=== PATIENT | female | born 1960 | race Caucasian/White ===

== ENCOUNTER 2017-10-28 18:59 | Emergency (ER) | payer OTHER ==
[~2017-10-28] VITALS: Ht 157.5 cm; Wt 103.4 kg
[~2017-10-28 18:59] MED LIST: METFORMIN
--- NOTE | 2017-10-28 19:35 | NUR ---
JACKIE SCHNEIDER AT BEDSIDE FOR MSE.
[2017-10-28] MEDS ORDERED: ONDANSETRON 4 MG/2 ML VIAL IV ONE (19:45)
[2017-10-28] MEDS ORDERED: MORPHINE SULFATE 2 MG/1 ML DISP.SYRIN IV ONE (19:45)
[2017-10-28 20:04] LABS: BASOPHILS # (AUTO) 0.1 K/uL (0.0-8.0); BASOPHILS % (AUTO) 0.5 % (0.0-2.0); EOSINOPHILS # (AUTO) 0.3 K/uL (0.0-0.7); HEMATOCRIT 36.7 % (31.2-41.9); HEMOGLOBIN 12.4 g/dL (10.9-14.3); LYMPHOCYTES # (AUTO) 4.5 K/uL (20.0-40.0); LYMPHOCYTES % (AUTO) 38.6 % (20.5-51.5); MEAN CORPUSCULAR HEMOGLOBIN 27.5 uug (24.7-32.8); MEAN CORPUSCULAR HGB CONC 34 g/dL (32.3-35.6); MEAN CORPUSCULAR VOLUME 81.9 fL (75.5-95.3); MONOCYTES # (AUTO) 0.6 K/uL (2.0-10.0); MONOCYTES % (AUTO) 5.2 % (0.0-11.0); NEUTROPHILS # (AUTO) 6.1 K/uL (1.8-8.9); NEUTROPHILS % (AUTO) 52.7 % (38.5-71.5); PLATELET COUNT (AUTO) 290 K/uL (179-408); RED BLOOD CELL COUNT(AUTO) 4.49 MIL/uL (3.63-4.92); WHITE BLOOD COUNT (AUTO) 11.6 K/uL (3.8-11.8)
[2017-10-28] MEDS ORDERED: ONDANSETRON 4 MG/2 ML VIAL ONE (20:04)
[2017-10-28] MEDS ORDERED: MORPHINE SULFATE 4 MG/1 ML DISP.SYRIN ONE (20:04)
[2017-10-28 20:13] LABS: CREATININE 1.1 mg/dL (0.6-1.3); POTASSIUM 4.8 mmol/L (3.5-5.1)
[2017-10-28 20:19] LABS: BILIRUBIN,DIRECT 0.1 mg/dL (0.0-0.2); BILIRUBIN,TOTAL 0.3 mg/dL (0.2-1.0); TOTAL PROTEIN, SERUM 7.6 g/dL (6.4-8.2)
--- NOTE | 2017-10-28 20:41 | NUR ---
PT AMBULATED TO BATHROOM W/ STEADY GAIT. NO SIGNS OF DISTRESS NOTED. URINE SAMPLE PROVIDED.
[2017-10-28 20:47] LABS: *BILIRUBIN,URIN NEGATIVE (NEGATIVE); *BLOOD, URINE NEGATIVE (NEGATIVE); *CLARITY,URINE CLEAR (CLEAR); *COLOR,URINE YELLOW (YELLOW); *KETONES,URINE 1+ (NEGATIVE); *PROTEIN,URINE 1+ (NEGATIVE); *UROBILINOGEN,URINE 0.2 E.U./dl (NORMAL); LEUKOCYTE ESTERASE ,URINE NEGATIVE (NEGATIVE); NITRITE, URINE NEGATIVE (NEGATIVE); PH,URINE 5.5 (5.0-8.0); UGLUCOSE NEGATIVE (NEGATIVE)
[2017-10-28 21:07] LABS: BACTERIA,URINE FEW /HPF (NONE SEEN); SQUAMOUS EPITHELIAL CELL,UR FEW /HPF (NONE SEEN); WBC,URINE 0-3 /HPF (0-3)
[2017-10-28 21:08] LABS: MUCUS,URINE MODERATE /LPF (0-FEW)
--- NOTE | 2017-10-28 21:41 | NUR ---
PT RESTING IN A POSITION OF COMFORT W/ EYES CLOSED. NO SIGNS OF DISTRESS NOTED.
[2017-10-28] MEDS ORDERED: HYDROMORPHONE 1 MG/1 ML DISP.SYRIN IV ONE (22:30)
[2017-10-28] MEDS ORDERED: HYDROMORPHONE 2 MG/1 ML DISP.SYRIN ONE (22:46)
--- NOTE | 2017-10-28 22:58 | NUR ---
Patient discharged to home in stable conditon. Written and verbal after care instructions given. Patient verbalizes understanding of instructions. IV removed w/ catheter intact. no bleeding noted at site. Pt ambulated from ER w/ steady gait. Pt took all personal belongings.
[2017-10-28 23:01] VITALS: BP 136/82
== END 2017-10-28 23:01 | disposition home or self-care (01) ==
LOC: ER 18:59
DX: R10.11 Right upper quadrant pain (principal); E11.9 Type 2 diabetes mellitus without complications; E78.00 Pure hypercholesterolemia, unspecified; Z79.84 Long term (current) use of oral hypoglycemic drugs
CPT/HCPCS: 36415; 70030-TC; 71045; 83690; 85025; 93005; A4663; J1170; J2270; J2405

== ENCOUNTER 2019-03-06 12:31 | Emergency (ER) | payer OTHER ==
[~2019-03-06] VITALS: Ht 160 cm; Wt 102.1 kg
--- NOTE | 2019-03-06 12:42 | NUR ---
PT A/OX4, PRESENTS TO THE ER C/O DIZZINESS SINCE THIS AM. 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 VSS. PT DENIES C/P, SOB, N/V/D, HEADACHE. ER MD AT BEDSIDE FOR MSE.
[2019-03-06] MEDS ORDERED: IV NORMAL SALINE 1000 ML BAG IV ONE (12:45)
[2019-03-06 13:06] LABS: BASOPHILS # (AUTO) 0.1 K/uL (0.0-8.0); BASOPHILS % (AUTO) 0.6 % (0.0-2.0); EOSINOPHILS # (AUTO) 0.2 K/uL (0.0-0.7); EOSINOPHILS % (AUTO) 1.9 % (0.0-7.0); HEMATOCRIT 38.4 % (31.2-41.9); HEMOGLOBIN 12.5 g/dL (10.9-14.3); LYMPHOCYTES # (AUTO) 3.4 K/uL (20.0-40.0); LYMPHOCYTES % (AUTO) 34.9 % (20.5-51.5); MEAN CORPUSCULAR HEMOGLOBIN 26.1 uug (24.7-32.8); MEAN CORPUSCULAR HGB CONC 32 g/dL (32.3-35.6); MEAN CORPUSCULAR VOLUME 80.6 fL (75.5-95.3); MONOCYTES # (AUTO) 0.4 K/uL (2.0-10.0); MONOCYTES % (AUTO) 4.3 % (0.0-11.0); NEUTROPHILS # (AUTO) 5.7 K/uL (1.8-8.9); NEUTROPHILS % (AUTO) 58.3 % (38.5-71.5); PLATELET COUNT (AUTO) 291 K/uL (179-408); RED BLOOD CELL COUNT(AUTO) 4.77 MIL/uL (3.63-4.92); WHITE BLOOD COUNT (AUTO) 9.8 K/uL (3.8-11.8)
[2019-03-06 13:10] LABS: CREATININE 0.8 mg/dL (0.6-1.3); POTASSIUM 4.4 mmol/L (3.5-5.1)
[2019-03-06 13:20] LABS: BILIRUBIN,DIRECT 0.1 mg/dL (0.0-0.2); BILIRUBIN,TOTAL 0.3 mg/dL (0.2-1.0); TOTAL PROTEIN, SERUM 7.8 g/dL (6.4-8.2)
--- NOTE | 2019-03-06 13:28 | NUR ---
JACKIE SCHNEIDER AT BEDSIDE FOR PT UPDATE.
--- NOTE | 2019-03-06 13:35 | NUR ---
Patient discharged to home in stable conditon. Written and verbal after care instructions given. Patient verbalizes understanding of instructions. ALL BELONGINGS W/ PT. PT SELF-AMBULATED W/O DIFFICULTY. 20G IV ACCESS IN R HAND REMOVED PRIOR TO D/C - INNER CANNULA INTACT.
[2019-03-06 13:36] VITALS: BP 141/76
== END 2019-03-06 13:37 | disposition home or self-care (01) ==
LOC: ER 12:31
DX: R42 Dizziness and giddiness (principal); E78.00 Pure hypercholesterolemia, unspecified; E11.9 Type 2 diabetes mellitus without complications; Z79.84 Long term (current) use of oral hypoglycemic drugs
CPT/HCPCS: 36415; 70030-TC; 83690; 85025; 93005; A4663; J7030

== ENCOUNTER 2019-08-17 17:46 | Emergency (ER) | payer OTHER ==
[~2019-08-17] VITALS: Ht 160 cm; Wt 102.5 kg
[2019-08-17] MEDS ORDERED: ASPI-605 PO (18:13)
[2019-08-17 18:53] LABS: *BILIRUBIN,URIN NEGATIVE (NEGATIVE); *BLOOD, URINE NEGATIVE (NEGATIVE); *COLOR,URINE YELLOW (YELLOW); *KETONES,URINE NEGATIVE (NEGATIVE); *UROBILINOGEN,URINE 0.2 E.U./dl (NORMAL); LEUKOCYTE ESTERASE ,URINE NEGATIVE (NEGATIVE); NITRITE, URINE NEGATIVE (NEGATIVE); PH,URINE 5.5 (5.0-8.0); UGLUCOSE NEGATIVE (NEGATIVE)
[2019-08-17 18:59] LABS: *CLARITY,URINE SLIGHTLY HAZY (CLEAR)
[2019-08-17 19:00] LABS: BACTERIA,URINE FEW /HPF (NONE SEEN); MUCUS,URINE MANY /LPF (0-FEW); SQUAMOUS EPITHELIAL CELL,UR FEW /HPF (NONE SEEN); WBC,URINE 0-3 /HPF (0-3)
[2019-08-17] MEDS ORDERED: ONDANSETRON ODT 4 MG TAB.RAPDIS ONE (19:28)
[2019-08-17] MEDS ORDERED: CYCLOBENZAPRINE HCL 10 MG TABLET ONE (19:28)
[2019-08-17] MEDS ORDERED: KETOROLAC TROMETHAMINE 30 MG INJ ONE (19:28)
[2019-08-17] MEDS ORDERED: CYCLOBENZAPRINE HCL 10 MG TABLET PO ONE (19:30)
[2019-08-17] MEDS ORDERED: ONDANSETRON ODT 4 MG TAB.RAPDIS SL ONE (19:30)
[2019-08-17] MEDS ORDERED: KETOROLAC TROMETHAMINE 30 MG INJ IM ONE (19:30)
[2019-08-17] MEDS ORDERED: IV NS 1000 ML 1,000 ML IV ONE (19:45)
[2019-08-17 19:58] LABS: CREATININE 0.7 mg/dL (0.6-1.3); POTASSIUM 4.2 mmol/L (3.5-5.1)
[2019-08-17 19:59] LABS: BASOPHILS % (AUTO) 0.3 % (0.0-2.0); EOSINOPHILS # (AUTO) 0.1 K/uL (0.0-0.7); EOSINOPHILS % (AUTO) 1.6 % (0.0-7.0); HEMATOCRIT 38.8 % (31.2-41.9); HEMOGLOBIN 12.8 g/dL (10.9-14.3); LYMPHOCYTES # (AUTO) 1.1 K/uL (20.0-40.0); LYMPHOCYTES % (AUTO) 13.8 % (20.5-51.5); MEAN CORPUSCULAR HEMOGLOBIN 26.7 uug (24.7-32.8); MEAN CORPUSCULAR HGB CONC 33 g/dL (32.3-35.6); MEAN CORPUSCULAR VOLUME 80.8 fL (75.5-95.3); MONOCYTES # (AUTO) 0.3 K/uL (2.0-10.0); MONOCYTES % (AUTO) 3.1 % (0.0-11.0); NEUTROPHILS # (AUTO) 6.6 K/uL (1.8-8.9); NEUTROPHILS % (AUTO) 81.2 % (38.5-71.5); PLATELET COUNT (AUTO) 293 K/uL (179-408); RED BLOOD CELL COUNT(AUTO) 4.81 MIL/uL (3.63-4.92); WHITE BLOOD COUNT (AUTO) 8.1 K/uL (3.8-11.8)
[2019-08-17 20:03] LABS: BILIRUBIN,DIRECT 0.1 mg/dL (0.0-0.2); BILIRUBIN,TOTAL 0.4 mg/dL (0.2-1.0); TOTAL PROTEIN, SERUM 7.7 g/dL (6.4-8.2)
--- NOTE | 2019-08-17 20:50 | NUR ---
Patient states back pain is 2/10 and nausea is resolved. But c/o "heart burn" Dr Gordon made aware.
[2019-08-17] MEDS ORDERED: MAG HYDROX/AL HYDROX/SIMETH 30 ML LIQUID UDC PO ONE (21:00)
[2019-08-17] MEDS ORDERED: LIDOCAINE VISCUS 2% 15 ML UDC MM ONE (21:00)
[2019-08-17] MEDS ORDERED: MAG HYDROX/AL HYDROX/SIMETH 30 ML LIQUID UDC ONE (21:05)
[2019-08-17] MEDS ORDERED: LIDOCAINE VISCUS 2% 15 ML UDC ONE (21:06)
--- NOTE | 2019-08-17 21:45 | NUR ---
Patient states "heart burn is gone. No distress noted.
--- NOTE | 2019-08-17 21:51 | NUR ---
IV removed. Catheter intact and site benign. Pressure and 4x4 gauze applied to site. No bleeding noted.
[2019-08-17 21:58] VITALS: BP 138/66
--- NOTE | 2019-08-17 21:58 | NUR ---
Patient discharged to home in stable conditon with family taking Patient home. Written and verbal after care instructions given. Patient verbalizes understanding of instructions. Walked out of ER with no distressm noted.
== END 2019-08-17 21:59 | disposition home or self-care (01) ==
LOC: ER 17:46
DX: M54.9 Dorsalgia, unspecified (principal); R10.9 Unspecified abdominal pain; M25.512 Pain in left shoulder; R11.2 Nausea with vomiting, unspecified; E78.5 Hyperlipidemia, unspecified; E11.9 Type 2 diabetes mellitus without complications; Z79.82 Long term (current) use of aspirin; Z79.84 Long term (current) use of oral hypoglycemic drugs
CPT/HCPCS: 36415; 73030; 74176; 80048; 80076; 81000; 81001; 84484; 85025; 93005; 96360; 96372; 99284; J1885; 70030-TC; A4663; J7030; Q0162

== ENCOUNTER 2020-04-19 20:22 | Emergency (ER) | payer OTHER ==
[~2020-04-19] VITALS: Ht 160 cm; Wt 102.1 kg
[~2020-04-19 20:22] MED LIST changes: +ASPI-605 PO
--- NOTE | 2020-04-19 20:40 | NUR ---
MD Gordon at [facility] for MSE
[2020-04-19] MEDS ORDERED: CYCLOBENZAPRINE HCL 10 MG TABLET PO ONE (20:45)
[2020-04-19] MEDS ORDERED: IBUPROFEN 800 MG TABLET PO ONE (20:45)
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
[2020-04-19] MEDS ORDERED: IBUPROFEN 800 MG TABLET ONE (20:51)
[2020-04-19] MEDS ORDERED: CYCLOBENZAPRINE HCL 10 MG TABLET ONE (20:51)
--- NOTE | 2020-04-19 20:54 | NUR ---
Radiology in the room at this time
--- NOTE | 2020-04-19 21:40 | NUR ---
Patient noted resting in bed, vitals WNL
--- NOTE | 2020-04-19 22:04 | NUR ---
Patient discharged to home in stable condition. Noted ambulating with steady gait. Written and verbal after care instructions given. instructed to follow up with ortho surgeon, information provided on surgeon to followup with. Patient verbalizes understanding of instructions. Stressed follow up or return to ER for worsening s/s. no signs of acute distress. RX given, instructed not to drive when taking medication provided, states daughter will pick her up
[2020-04-19 22:06] VITALS: BP 142/78
== END 2020-04-19 22:07 | disposition home or self-care (01) ==
LOC: ER 20:24
DX: R07.89 Other chest pain (principal); S83.91XA Sprain of unspecified site of right knee, initial encounter; V43.52XA Car driver injured in collision with other type car in traffic accident, initial encounter; Y92.488 Other paved roadways as the place of occurrence of the external cause; E11.9 Type 2 diabetes mellitus without complications; E78.00 Pure hypercholesterolemia, unspecified; R03.0 Elevated blood-pressure reading, without diagnosis of hypertension
CPT/HCPCS: 71101; 93005; A4663

== ENCOUNTER 2020-04-23 14:46 | Emergency (ER) | payer OTHER ==
[~2020-04-23] VITALS: Ht 160 cm; Wt 102.1 kg
[2020-04-23 16:22] LABS: BASOPHILS # (AUTO) 0.1 K/uL (0.0-8.0); BASOPHILS % (AUTO) 0.6 % (0.0-2.0); EOSINOPHILS # (AUTO) 0.2 K/uL (0.0-0.7); EOSINOPHILS % (AUTO) 2.6 % (0.0-7.0); HEMATOCRIT 36.2 % (31.2-41.9); LYMPHOCYTES # (AUTO) 3.1 K/uL (20.0-40.0); LYMPHOCYTES % (AUTO) 34.6 % (20.5-51.5); MEAN CORPUSCULAR HEMOGLOBIN 26.9 uug (24.7-32.8); MEAN CORPUSCULAR HGB CONC 33 g/dL (32.3-35.6); MEAN CORPUSCULAR VOLUME 81.3 fL (75.5-95.3); MONOCYTES # (AUTO) 0.5 K/uL (2.0-10.0); MONOCYTES % (AUTO) 5.2 % (0.0-11.0); NEUTROPHILS # (AUTO) 5.1 K/uL (1.8-8.9); PLATELET COUNT (AUTO) 282 K/uL (179-408); RED BLOOD CELL COUNT(AUTO) 4.45 MIL/uL (3.63-4.92)
[2020-04-23 16:34] LABS: ALANINE AMINOTRANSFERASE 48 U/L (14-59); ALKALINE PHOSPHATASE 88 U/L (50-136); ASPARTATE AMINOTRANSFERASE 34 U/L (15-37); BILIRUBIN,DIRECT < 0.1 mg/dL (0.0-0.2); BILIRUBIN,TOTAL 0.3 mg/dL (0.2-1.0); CARBON DIOXIDE 28 mmol/L (21-32); CHLORIDE 107 mmol/L (98-107); GLUCOSE 121 mg/dL (74-106); POTASSIUM 4.3 mmol/L (3.5-5.1); TOTAL PROTEIN, SERUM 7.5 g/dL (6.4-8.2); UREA NITROGEN, BLOOD 17 mg/dL (7-18)
[2020-04-23] MEDS ORDERED: SWABABLE VALVE TRANSFER SET EA MC ONE (16:53)
[2020-04-23] MEDS ORDERED: IOHEXOL 300MG/ML 100 ML INFUS..BTL ONE (16:54)
[2020-04-23] MEDS ORDERED: IV NORMAL SALINE 250 ML IV ONE (16:54)
[2020-04-23] MEDS ORDERED: HYDROCODONE/APAP 10-325 MG TABLET PO ONE (17:45)
[2020-04-23] MEDS ORDERED: IBUPROFEN 600 MG TABLET PO ONE (17:45)
[2020-04-23] MEDS ORDERED: IBUPROFEN 600 MG TABLET ONE (17:55)
[2020-04-23] MEDS ORDERED: HYDROCODONE/APAP 10-325 MG TABLET ONE (17:55)
--- NOTE | 2020-04-23 18:00 | NUR ---
IV removed. Catheter intact and site benign. Pressure and 4x4 gauze applied to site. No bleeding noted. Patient discharged to home in stable condition. Written and verbal after care instructions given to patient. Patient verbalized understanding & compliance of instructions. Stressed follow up with her primary doctor or return to ER for worsening s/s.
== END 2020-04-23 18:09 | disposition home or self-care (01) ==
LOC: ER 14:46
DX: S20.211A Contusion of right front wall of thorax, initial encounter (principal); V49.40XA Driver injured in collision with unspecified motor vehicles in traffic accident, initial encounter; Y92.410 Unspecified street and highway as the place of occurrence of the external cause; S89.91XA Unspecified injury of right lower leg, initial encounter; S39.91XA Unspecified injury of abdomen, initial encounter; R16.0 Hepatomegaly, not elsewhere classified; E11.9 Type 2 diabetes mellitus without complications; Z79.84 Long term (current) use of oral hypoglycemic drugs; Z79.82 Long term (current) use of aspirin
CPT/HCPCS: 36415; 71260; 74177; 80048; 80076; 85025; 85730; 99285; Q9967; A4663; J7050

== ENCOUNTER 2021-03-09 17:54 | Emergency (ER) | payer OTHER ==
[~2021-03-09] VITALS: Ht 160 cm; Wt 103.9 kg
--- NOTE | 2021-03-09 18:13 | NUR ---
Dae naylor in ED - 03/09/21 at 1813 by MART NOT IN WAITING RM WHEN CALLED
[2021-03-09 18:31] LABS: *BILIRUBIN,URIN NEGATIVE (NEGATIVE); *BLOOD, URINE NEGATIVE (NEGATIVE); *CLARITY,URINE CLEAR (CLEAR); *COLOR,URINE YELLOW (YELLOW); *KETONES,URINE NEGATIVE (NEGATIVE); *UROBILINOGEN,URINE 0.2 E.U./dl (NORMAL); LEUKOCYTE ESTERASE ,URINE NEGATIVE (NEGATIVE); NITRITE, URINE NEGATIVE (NEGATIVE); UGLUCOSE NEGATIVE (NEGATIVE)
[2021-03-09 18:36] LABS: HEMATOCRIT 36.9 % (31.2-41.9); MEAN CORPUSCULAR VOLUME 82.4 fL (75.5-95.3); PLATELET COUNT (AUTO) 291 K/uL (179-408)
[2021-03-09 18:40] LABS: CREATININE 0.9 mg/dL (0.6-1.3); POTASSIUM 4.8 mmol/L (3.5-5.1)
--- NOTE | 2021-03-09 18:50 | NUR ---
Dr Tejada at the bedside for MSE.
[2021-03-09 18:51] LABS: BILIRUBIN,DIRECT 0.1 mg/dL (0.0-0.2); BILIRUBIN,TOTAL 0.3 mg/dL (0.2-1.0); TOTAL PROTEIN, SERUM 7.5 g/dL (6.4-8.2)
[2021-03-09] MEDS ORDERED: PANTOPRAZOLE SODIUM 40 MG VIAL IV ONE (19:00)
[2021-03-09] MEDS ORDERED: ONDANSETRON 4 MG/2 ML VIAL IV ONE (19:00)
[2021-03-09] MEDS ORDERED: IV NORMAL SALINE 1000 ML BAG IV ONE (19:00)
[2021-03-09] MEDS ORDERED: ONDANSETRON 4 MG/2 ML VIAL ONE ×2 (19:15→20:26)
[2021-03-09] MEDS ORDERED: PANTOPRAZOLE SODIUM 40 MG VIAL ONE (19:15)
--- NOTE | 2021-03-09 19:50 | NUR ---
Pt states no longer has nausea and asking for ice chips.
--- NOTE | 2021-03-09 20:30 | NUR ---
Pt able to tolorate PO intak.
[2021-03-09] MEDS ORDERED: OMEP40CA21 PO (20:45)
[2021-03-09] MEDS ORDERED: ONDA4TAB11 PO (20:45)
--- NOTE | 2021-03-09 20:56 | NUR ---
IV removed. Catheter intact and site benign. Pressure and 4x4 gauze applied to site. No bleeding noted.
[2021-03-09 20:57] VITALS: BP 142/88
--- NOTE | 2021-03-09 20:58 | NUR ---
Patient discharged to home in stable condition. Written and verbal after care instructions given. Patient verbalizes understanding of instructions. Stressed follow up or return to ER for worsening s/s.
== END 2021-03-09 20:58 | disposition home or self-care (01) ==
LOC: ER 17:56
DX: R10.13 Epigastric pain (principal); R11.10 Vomiting, unspecified; R19.7 Diarrhea, unspecified; R00.0 Tachycardia, unspecified; D72.829 Elevated white blood cell count, unspecified; E78.00 Pure hypercholesterolemia, unspecified; E11.65 Type 2 diabetes mellitus with hyperglycemia; Z79.84 Long term (current) use of oral hypoglycemic drugs
CPT/HCPCS: 36415; 71045; 80048; 80076; 81003; 82150; 83690; 84484; 85025; 93005; 96361; 96374; 96375; 99285; C9113; J2405 ×2; 70030-TC; A4663; J7030

== ENCOUNTER 2021-10-25 10:22 | Emergency (ER) | payer OTHER ==
[~2021-10-25] VITALS: Ht 160 cm; Wt 99.8 kg
[~2021-10-25 10:22] MED LIST changes: +OMEP40CA21 PO; +ONDA4TAB11 PO
[2021-10-25] MEDS ORDERED: CEFTRIAXONE 2 G in IV DEXTROSE 5% 100 ML IV ONE (11:00)
[2021-10-25] MEDS ORDERED: METRONIDAZOLE 500 MG/NS 100 ML PIGGYBACK IV ONE (11:00)
[2021-10-25] MEDS ORDERED: KETOROLAC TROMETHAMINE 30 MG INJ IVP ONE (11:00)
[2021-10-25] MEDS ORDERED: METRONIDAZOLE 500 MG/NS 100ML 100 ML IV ONE (11:09)
[2021-10-25] MEDS ORDERED: CEFTRIAXONE 1 G VIAL ONE (11:09)
[2021-10-25] MEDS ORDERED: KETOROLAC TROMETHAMINE 30 MG INJ ONE (11:31)
--- NOTE | 2021-10-25 11:40 | NUR ---
Pt states her pain is improved, NAD noted at this time.
[2021-10-25] MEDS ORDERED: METR250T36 PO (12:29)
[2021-10-25] MEDS ORDERED: FLUC150T PO ×2 (12:29)
[2021-10-25] MEDS ORDERED: HYDR-4209 PO (12:29)
[2021-10-25] MEDS ORDERED: CEFU500T66 PO (12:29)
--- NOTE | 2021-10-25 12:51 | NUR ---
IV removed. Catheter intact and site benign. Pressure and 4x4 gauze applied to site. No bleeding noted.
== END 2021-10-25 12:58 | disposition home or self-care (01) ==
LOC: ER 10:25
DX: K04.7 Periapical abscess without sinus (principal); E78.5 Hyperlipidemia, unspecified; E66.9 Obesity, unspecified; Z68.39 Body mass index [BMI] 39.0-39.9, adult; Z79.82 Long term (current) use of aspirin; Z79.84 Long term (current) use of oral hypoglycemic drugs; K21.9 Gastro-esophageal reflux disease without esophagitis
CPT/HCPCS: 82962; 96365; 96367; 96375; 99284; J0696; J1885; J3490; A4663

== ENCOUNTER 2021-10-26 13:22 | Emergency (ER) | payer OTHER ==
[~2021-10-26] VITALS: Ht 160 cm; Wt 99.8 kg
[~2021-10-26 13:22] MED LIST changes: +CEFU500T66 PO; +FLUC150T PO; +HYDR-4209 PO; +METR250T36 PO
[2021-10-26] MEDS ORDERED: LIDOCAINE HCL 1% 20 ML VIAL IJ ONE (14:15)
[2021-10-26] MEDS ORDERED: HYDROMORPHONE 1 MG/1 ML DISP.SYRIN IV ONE ×2 (14:15→15:30)
[2021-10-26] MEDS ORDERED: IV NORMAL SALINE 250 ML BAG IV ONE (14:15)
[2021-10-26] MEDS ORDERED: IOHEXOL 300MG/ML 100 ML INFUS..BTL ONE (14:25)
[2021-10-26] MEDS ORDERED: SWABABLE VALVE TRANSFER SET EA MC ONE (14:25)
[2021-10-26] MEDS ORDERED: IV NORMAL SALINE 250 ML IV ONE (14:25)
[2021-10-26 14:26] LABS: HEMATOCRIT 35.6 % (31.2-41.9); MEAN CORPUSCULAR HEMOGLOBIN 27.7 uug (24.7-32.8); MEAN CORPUSCULAR VOLUME 82.4 fL (75.5-95.3); PLATELET COUNT (AUTO) 320 K/uL (179-408)
[2021-10-26 14:34] LABS: CREATININE 0.6 mg/dL (0.6-1.3); POTASSIUM 4.5 mmol/L (3.5-5.1)
[2021-10-26] MEDS ORDERED: HYDROMORPHONE 1 MG/1 ML DISP.SYRIN ONE (14:38)
[2021-10-26 14:39] LABS: BILIRUBIN,TOTAL 0.2 mg/dL (0.2-1.0); TOTAL PROTEIN, SERUM 7.7 g/dL (6.4-8.2)
--- NOTE | 2021-10-26 14:53 | NUR ---
Pt taken for CT scan in stable condition via wheelchair accompanied by tech.
--- NOTE | 2021-10-26 15:18 | NUR ---
Pt back from CT. States medication helped with pain at first, but she's back to 9/10 pain. Provider notified.
[2021-10-26] MEDS ORDERED: MORPHINE SULFATE 4 MG/1 ML DISP.SYRIN IV ONE (15:30)
[2021-10-26] MEDS ORDERED: MORPHINE SULFATE 4 MG/1 ML DISP.SYRIN ONE (15:42)
--- NOTE | 2021-10-26 16:04 | NUR ---
Pt laying in [place]. Pt in no acute distress at this time.
[2021-10-26] MEDS ORDERED: KETOROLAC TROMETHAMINE 15 MG INJ IVP ONE (16:15)
[2021-10-26] MEDS ORDERED: KETOROLAC TROMETHAMINE 15 MG INJ ONE (16:25)
--- NOTE | 2021-10-26 16:38 | NUR ---
Pt states improvement in pain, 01/26. D/C'd saline lock, clear and intact.
--- NOTE | 2021-10-26 16:50 | NUR ---
Pt states someone is going to be coming to pickher up and drive her car home for her. Pt instructed not to drive.
[2021-10-26 17:13] VITALS: BP 160/90
== END 2021-10-26 17:15 | disposition home or self-care (01) ==
LOC: ER 13:43
DX: K05.219 Aggressive periodontitis, localized, unspecified severity (principal); K12.2 Cellulitis and abscess of mouth; E66.9 Obesity, unspecified; Z68.39 Body mass index [BMI] 39.0-39.9, adult; E78.5 Hyperlipidemia, unspecified; Z79.82 Long term (current) use of aspirin; Z79.899 Other long term (current) drug therapy; Z79.84 Long term (current) use of oral hypoglycemic drugs; K21.9 Gastro-esophageal reflux disease without esophagitis
CPT/HCPCS: 36415; 41800; 70491; 80053; 85025; 96361; 96374; 96375; 99285; J1170; J1885; J2270; J3490; Q9967; A4663; J7030; J7050

== ENCOUNTER 2022-06-30 20:39 | Emergency (ER) | payer SELFPAY ==
[~2022-06-30] VITALS: Ht 157.5 cm; Wt 100.7 kg
--- NOTE | 2022-06-30 22:00 | NUR ---
Called patient to be triaged but was not present in the waiting room or outside of ER
--- NOTE | 2022-07-01 00:45 | NUR ---
Patient was called to have vital re evaluated but was not present in the waiting room or outside of ER.
--- NOTE | 2022-07-01 02:47 | NUR ---
Patient was called to be placed in room but was not present in the waiting room or outside of ER. PATIENT WAS TRIAGED BUT NOT SEEN BY ERMD.
== END 2022-07-01 02:48 | disposition left against medical advice (07) ==
LOC: ER 20:39
DX: Z53.21 Procedure and treatment not carried out due to patient leaving prior to being seen by health care provider (principal)

== ENCOUNTER 2022-08-01 12:18 | Emergency (ER) | payer OTHER ==
[~2022-08-01] VITALS: Ht 157.5 cm; Wt 101.2 kg
--- NOTE | 2022-08-01 12:53 | NUR ---
pt resting comfortably in bed, has been connected to cardiac/respiratory monitoring. waiting to see MD, pt VS WNL and stable. EKG done, results handed to MD.
[2022-08-01] MEDS ORDERED: MAG HYDROX/AL HYDROX/SIMETH 30 ML LIQUID UDC PO ONE (13:15)
[2022-08-01] MEDS ORDERED: ONDANSETRON 4 MG/2 ML VIAL IV ONE (13:15)
[2022-08-01 13:19] LABS: HEMATOCRIT 35.6 % (31.2-41.9); MEAN CORPUSCULAR HEMOGLOBIN 27.4 uug (24.7-32.8); MEAN CORPUSCULAR VOLUME 82.4 fL (75.5-95.3); PLATELET COUNT (AUTO) 292 K/uL (179-408)
[2022-08-01 13:30] LABS: CARBON DIOXIDE 27 mmol/L (21-32); CHLORIDE 100 mmol/L (98-107); GLUCOSE 203 mg/dL (74-106); POTASSIUM 4.2 mmol/L (3.5-5.1); UREA NITROGEN, BLOOD 16 mg/dL (7-18)
[2022-08-01 13:41] LABS: ALANINE AMINOTRANSFERASE 42 U/L (14-59); ALKALINE PHOSPHATASE 94 U/L (50-136); ASPARTATE AMINOTRANSFERASE 27 U/L (15-37); BILIRUBIN,DIRECT 0.1 mg/dL (0.0-0.2); BILIRUBIN,TOTAL 0.2 mg/dL (0.2-1.0); TOTAL PROTEIN, SERUM 7.8 g/dL (6.4-8.2)
[2022-08-01] MEDS ORDERED: MAG HYDROX/AL HYDROX/SIMETH 30 ML LIQUID UDC ONE (13:42)
[2022-08-01] MEDS ORDERED: ONDANSETRON 4 MG/2 ML VIAL ONE (13:42)
[2022-08-01 13:44] LABS: *BILIRUBIN,URIN NEGATIVE (NEGATIVE); *BLOOD, URINE NEGATIVE (NEGATIVE); *CLARITY,URINE CLEAR (CLEAR); *COLOR,URINE LIGHT YELLOW (YELLOW); *KETONES,URINE NEGATIVE (NEGATIVE); *URINE HCG, QUAL NEG (NEGATIVE); *UROBILINOGEN,URINE 0.2 E.U./dl (NORMAL); LEUKOCYTE ESTERASE ,URINE NEGATIVE (NEGATIVE); NITRITE, URINE NEGATIVE (NEGATIVE); PH,URINE 5.5 (5.0-8.0); UGLUCOSE NEGATIVE (NEGATIVE)
[2022-08-01] MEDS ORDERED: OMEP20CA15 PO (15:49)
[2022-08-01 16:17] VITALS: BP 150/90
== END 2022-08-01 16:18 | disposition home or self-care (01) ==
LOC: ER 12:19
DX: R07.9 Chest pain, unspecified (principal); K21.9 Gastro-esophageal reflux disease without esophagitis; R00.0 Tachycardia, unspecified; E66.9 Obesity, unspecified; Z68.41 Body mass index [BMI] 40.0-44.9, adult; E78.5 Hyperlipidemia, unspecified; E11.9 Type 2 diabetes mellitus without complications; I10 Essential (primary) hypertension; Z83.79 Family history of other diseases of the digestive system; Z79.82 Long term (current) use of aspirin; Z79.84 Long term (current) use of oral hypoglycemic drugs
CPT/HCPCS: 99285; 96374; 71045; 80076; 80048; 81003; 84703; 85025; 84484 ×3; 36415; J2405; A4663

== ENCOUNTER 2022-09-13 11:07 | Emergency (ER) | payer OTHER ==
[~2022-09-13] VITALS: Ht 157.5 cm; Wt 81.6 kg
[~2022-09-13 11:07] MED LIST changes: +OMEP20CA15 PO
[2022-09-13] MEDS ORDERED: IV NORMAL SALINE 1000 ML BAG IV ONE (11:30)
[2022-09-13] MEDS ORDERED: LIDOCAINE VISCUS 2% 15 ML UDC MM ONE (11:45)
[2022-09-13] MEDS ORDERED: FAMOTIDINE. 20 MG/2 ML VIAL IV ONE ×2 (11:45→11:52)
[2022-09-13] MEDS ORDERED: MAG HYDROX/AL HYDROX/SIMETH 30 ML LIQUID UDC PO ONE (11:45)
[2022-09-13 11:48] LABS: HEMATOCRIT 33.5 % (31.2-41.9); MEAN CORPUSCULAR HEMOGLOBIN 27.7 uug (24.7-32.8); MEAN CORPUSCULAR VOLUME 81.6 fL (75.5-95.3); PLATELET COUNT (AUTO) 274 K/uL (179-408)
[2022-09-13] MEDS ORDERED: MAG HYDROX/AL HYDROX/SIMETH 30 ML LIQUID UDC ONE (11:52)
[2022-09-13] MEDS ORDERED: LIDOCAINE VISCUS 2% 15 ML UDC ONE (11:52)
[2022-09-13 12:18] LABS: CARBON DIOXIDE 30 mmol/L (21-32); CHLORIDE 103 mmol/L (98-107); CREATININE 0.9 mg/dL (0.6-1.3); GLUCOSE 123 mg/dL (74-106); POTASSIUM 3.5 mmol/L (3.5-5.1); UREA NITROGEN, BLOOD 14 mg/dL (7-18)
--- NOTE | 2022-09-13 12:52 | NUR ---
PATIENT WAS SEEN BY MD. MEDS GIVEN ORDERED. PATIENT STATES HE "FELT BETTER" AFTER THE PO MEDS
--- NOTE | 2022-09-13 15:17 | NUR ---
DC and Follow up instructions given and explained to patient who states he understands all instructions
--- NOTE | 2022-09-13 15:17 | NUR ---
IV removed. Catheter intact and site benign. Pressure and 4x4 gauze applied to site. No bleeding noted.
== END 2022-09-13 15:18 | disposition home or self-care (01) ==
LOC: ER 11:08
DX: R07.9 Chest pain, unspecified (principal); E78.5 Hyperlipidemia, unspecified; E66.9 Obesity, unspecified; Z68.32 Body mass index [BMI] 32.0-32.9, adult; K21.9 Gastro-esophageal reflux disease without esophagitis; E11.9 Type 2 diabetes mellitus without complications; Z79.82 Long term (current) use of aspirin; Z79.899 Other long term (current) drug therapy; I10 Essential (primary) hypertension
CPT/HCPCS: 99285; 96374; 71045; 96361; 80048; 85025; 84484 ×2; 36415; 93005; J3490; A4663; J7040

== ENCOUNTER 2024-02-22 18:23 | Emergency (ER) | payer OTHER ==
[~2024-02-22] VITALS: Ht 160 cm; Wt 89.4 kg
[2024-02-22] MEDS ORDERED: KETOROLAC TROMETHAMINE 30 MG INJ ONE (19:42)
[2024-02-22] MEDS ORDERED: ONDANSETRON ODT 4 MG TAB.RAPDIS ONE (19:44)
[2024-02-22] MEDS: ONDANSETRON ODT 4 MG TAB.RAPDIS SL ONE (19:55)
[2024-02-22] MEDS: KETOROLAC TROMETHAMINE 30 MG INJ IM ONE (19:56)
[2024-02-22 20:05] LABS: BASOPHILS # (AUTO) 0.2 K/UL (0.0-0.2); BASOPHILS % (AUTO) 1.8 % (0.0-2.0); EOSINOPHILS # (AUTO) 0.3 K/uL (0.0-0.7); EOSINOPHILS % (AUTO) 2.4 % (0.0-7.0); HEMOGLOBIN 12.1 g/dL (10.9-14.3); LYMPHOCYTES % (AUTO) 32.8 % (20.5-51.5); MEAN CORPUSCULAR HEMOGLOBIN 27.7 uug (24.7-32.8); MEAN CORPUSCULAR HGB CONC 33 g/dL (32.3-35.6); MEAN CORPUSCULAR VOLUME 84.9 fL (75.5-95.3); MONOCYTES # (AUTO) 0.6 K/uL (0.1-1.30); MONOCYTES % (AUTO) 5.2 % (0.0-11.0); NEUTROPHILS # (AUTO) 7.1 K/uL (1.8-8.9); NEUTROPHILS % (AUTO) 57.8 % (38.5-71.5); PLATELET COUNT (AUTO) 322 K/uL (179-408); RED BLOOD CELL COUNT(AUTO) 4.35 MIL/uL (3.63-4.92); RED CELL DISTRIBUTION WIDTH 14.1 % (12.3-17.7); WHITE BLOOD COUNT (AUTO) 12.3 K/uL (3.8-11.8)
[2024-02-22 20:28] LABS: DIFFERENTIAL COMMENT 1
[2024-02-22 20:29] LABS: CALCIUM 9.3 mg/dL (8.5-10.1); CREATININE 1.4 mg/dL (0.6-1.3)
[2024-02-22] MEDS ORDERED: MAG HYDROX/AL HYDROX/SIMETH 30 ML LIQUID UDC ONE (20:34)
[2024-02-22 20:35] LABS: ALBUMIN 3.6 g/dL (3.4-5.0); BILIRUBIN,TOTAL 0.4 mg/dL (0.2-1.0); TOTAL PROTEIN, SERUM 7.5 g/dL (6.4-8.2)
[2024-02-22] MEDS: MAG HYDROX/AL HYDROX/SIMETH 30 ML LIQUID UDC PO ONE (20:39)
[2024-02-22 20:43] LABS: LACTIC ACID 3.9 mmol/L (0.4-2.0)
[2024-02-22] MEDS: IV NS 1000 ML 1,000 ML IV ONE (21:50)
[2024-02-23 00:05] VITALS: BP 121/96; TEMP 98.6; O2SAT 99
[2024-02-23 00:07] LABS: *BLOOD, URINE NEGATIVE (NEGATIVE); *CLARITY,URINE CLEAR (CLEAR); *COLOR,URINE YELLOW (YELLOW); *KETONES,URINE 1+ (NEGATIVE); *PROTEIN,URINE 1+ (NEGATIVE); *UROBILINOGEN,URINE 0.2 E.U./dl (NORMAL); LEUKOCYTE ESTERASE ,URINE NEGATIVE (NEGATIVE); NITRITE, URINE NEGATIVE (NEGATIVE); UGLUCOSE NEGATIVE (NEGATIVE)
[2024-02-23 00:26] LABS: *BILIRUBIN,URIN 1+ (NEGATIVE)
== END 2024-02-23 00:05 | disposition home or self-care (01) ==
LOC: ER 18:25
DX: R42 Dizziness and giddiness (principal); R51.9 Headache, unspecified; J40 Bronchitis, not specified as acute or chronic; K21.9 Gastro-esophageal reflux disease without esophagitis; E11.9 Type 2 diabetes mellitus without complications; E78.5 Hyperlipidemia, unspecified; Z98.890 Other specified postprocedural states; Z79.899 Other long term (current) drug therapy
CPT/HCPCS: 99285; 70450; 96360; 80053; 81003; 82248; 85025; 87040; 36415; 72125; 96372; 83605 ×2; J1885; J7040; A4606; A4663; Q0162